=== PATIENT | female | born 1975 | race Caucasian/White ===

== ENCOUNTER 2021-05-28 17:37 | Emergency (ER) | payer MEDICAID ==
[~2021-05-28] VITALS: Ht 165.1 cm; Wt 68.2 kg
[2021-05-28 17:51] VITALS: BP 159/114
[2021-05-28] MEDS ORDERED: orphenadrine citrate 60mg/2ml inj. IM ONE (19:20)
[2021-05-28] MEDS ORDERED: ketorolac tromethamine 15mg/ml inj. IM ONE (19:20)
[2021-05-28] MEDS ORDERED: ORPH100T2 PO (19:27)
[2021-05-28] MEDS ORDERED: IBUP-1984 PO (19:27)
--- NOTE | 2021-05-28 19:39 | NUR ---
pt seen, treated and d/c by provider prior to data analysis intern
== END 2021-05-28 19:41 | disposition home or self-care (01) ==
LOC: ER 17:38
DX: G89.29 Other chronic pain (principal); M54.42 Lumbago with sciatica, left side; F17.200 Nicotine dependence, unspecified, uncomplicated; Z59.00 Homelessness unspecified; Z79.899 Other long term (current) drug therapy
CPT/HCPCS: 96372; 99284; J1885; J2360